=== PATIENT | female | born 1985 | race Caucasian/White ===

== ENCOUNTER 2017-07-04 21:29 | Inpatient (IN) | payer OTHER ==
[~2017-07-04] VITALS: Ht 170.2 cm; Wt 81.6 kg
[2017-07-06] MEDS ORDERED: FAMOTIDINE(*) 20MG/50ML PREMIX 50 ML IVPB PRN (05:58)
[2017-07-06] MEDS ORDERED: LR(*) 1000 ML BAG 1,000 ML IV PRN (05:58)
[2017-07-06] MEDS ORDERED: DLR(*) 1000 ML BAG 1,000 ML IV PRN (05:58)
[2017-07-06] MEDS ORDERED: OXYTOCIN 30 UNIT/D5LR 500 ML 500 ML IV PRN ×2 (05:58→13:09)
[2017-07-06] MEDS ORDERED: fentaNYL CITR 100 MCG/2 ML AMP IVP PRN (06:00)
[2017-07-06] MEDS ORDERED: cefOXitin/DEX(*) 2GM/50ML PREM 50 ML IVPB PRN ×2 (06:00)
[2017-07-06] MEDS ORDERED: FLUSH 10 ML SYR IVP PRN ×2 (06:00)
[2017-07-06] MEDS ORDERED: METOCLOPRAMIDE 10 MG/2 ML SDV IVP PRN (06:00)
[2017-07-06] MEDS ORDERED: LIDOCAINE 1% LOCAL 300 MG/30ML INJ PRN (06:00)
[2017-07-06 06:20] VITALS: BP 112/78
[2017-07-06 06:30] VITALS: Ht 170.2 cm; Wt 81.6 kg
[2017-07-06] MEDS ORDERED: OMEG-96 PO (06:54)
[2017-07-06] MEDS ORDERED: PREN-127 PO (06:54)
[2017-07-06] MEDS ORDERED: LACT1CAP9 PO (06:55)
[2017-07-06] MEDS ORDERED: ASCO-182 PO (06:55)
[2017-07-06 07:16] LABS: PLATELET COUNT, AUTOMATED 168 K/uL (150-450)
[2017-07-06] MEDS: LR(*) 1000 ML BAG 1,000 ML IV PRN ×2 (07:37→11:51)
--- NOTE | 2017-07-06 09:22 | History & Physical ---
History of Present Illness Age of Patient: 31 : 1 Para or TPAL: 0000 EDC per LMP: Jul 04, 2017 Estimated Gestational Age: 40.2 Chief Complaint contractions History of Present Illness The patient is a 31 year old 1 para 0000 admitted at 40 2/7 weeks estimated gestational age with an estimated date of delivery 07/04/17. Patient is admitted with complaint of contractions. No vaginal bleeding. Good movement and occasional contractions. She was evaluated for active labor. She had an uncomplicated course. Her record was reviewed. History Allergies: Coded Allergies: No Known Drug Allergies (Unverified , 07/06/17) Med Rec Home Meds Reported Medications Lactobacillus Combo No.10 (PROBIOTIC) 1 Each Capsule, 1 EACH PO, #1 CAPSULE 07/06/17 Ascorbic Acid (VITAMIN C) 500 Mg Tablet, 500 MG PO, #1 TAB 07/06/17 [place]-3 Fatty Acids/Fish Oil (OMEGA 3 1,000 MG SOFTGEL) 1 Each Capsule, 1 EACH PO QDAY, #1 CAPSULE 07/06/17 Vits W-Ca,Fe,Fa(<1MG) ( VITAMINS) 1 Each Tablet, 1 EACH PO DAILY, #1 TAB 07/06/17 Exam General Exam Vital Signs Vital Signs Date Time Temp Pulse Resp B/P (MAP) Pulse Ox O2 Delivery O2 Flow Rate FiO2 07/06/17 06:20 110 18 112/78 (89) 99 Room Air Cardiovascular: Regular Rate and Rhythm Respiratory: Clear to Auscultation Abdomen: Gravid - Non-Tender Extremities: No Edema Cervical Dialation: 3 (RN) Cervical Effacement (%): 100 Uterine Contractions(Q min): 3 Uterine Contraction Strength: Moderate Fetus Heart Tones: 140 Heart Tone Variabilty: Moderate FHT Accelerations: 15X15 FHT Category: I Medical Decision Making Data Points Result Diagram: 07/06/17 0656 Assessment and Plan Problems: (1) Normal , first Assessment & Plan: POSSIBLE EARLY LABOR WILL MONITOR FOR CHANGE Copies to: FAN MCKINLEY MD, JOHN MD Jul 06, 2017 09:22
[2017-07-06] MEDS ORDERED: LIDO/EPI 2% MPF 1:200,000 20ML EPI PRN (11:30)
[2017-07-06] MEDS ORDERED: EPIDURAL KEYS XX PRN (11:30)
[2017-07-06] MEDS ORDERED: fentaNYL CITR 100 MCG/2 ML AMP IT PRN (11:30)
[2017-07-06] MEDS ORDERED: FENTANYL/ROPIVACAINE 100 ML BAG EPI PRN (11:30)
[2017-07-06] MEDS ORDERED: LIDOCAINE/PF 2% 200MG/10ML AMP 200 MG/10 ML AMPUL EPI PRN (11:30)
[2017-07-06] MEDS ORDERED: BUPIVACAINE 0.25% MPF INJ EPI PRN (11:30)
[2017-07-06] MEDS ORDERED: BUPIVACAINE 0.5% INJ 30ML VIAL EPI PRN (11:30)
--- NOTE | 2017-07-06 13:09 | Labor Progress Note ---
Labor Subjective Progress Notes Subjective comfortable with epidural, was desiring to do naturally but now wants to deliver. Labor Pain: Comfortable Labor Objective Vital Signs Vital Signs Date Time Temp Pulse Resp B/P (MAP) Pulse Ox O2 Delivery O2 Flow Rate FiO2 07/06/17 06:20 110 18 112/78 (89) 99 Room Air Cervical Dialation: 4 Cervical Effacement (%): 100 Cervical Consistency: Soft Cervical Position: Anterior Station: 0 Uterine Contractions(Q min): 6 Uterine Contraction Strength: Moderate Fetus Heart Tones: 150 Heart Tone Variabilty: Moderate FHT Accelerations: 15X15 FHT Category: I Other Result Diagram: 07/06/17 0656 Assessment and Plan Problems: (1) Normal , first (2) Active labor at term Assessment & Plan: AROM CLEAR FLUID, WILL MONITOR FOR CHANGE, LIKELY WILL NEED PITOCIN AUGMENTATION FAN MCKINLEY MD Jul 06, 2017 13:09
[2017-07-06] MEDS ORDERED: TERBUTALINE SULF 1 MG/ML VIAL SUBQ PRN (13:10)
--- NOTE | 2017-07-06 14:26 | Anesthesia OB Pre-Anes Eval ---
History of Present Illness Anesthesia Start Date: Jul 06, 2017 Anesthesia Start Time: 11:55 OB Anesthesia Diagnosis: spontaneous labor Complications: None known EDC: Jul 04, 2017 : 1 Para: 0 Vital Signs: Vital Signs Date Time Temp Pulse Resp B/P (MAP) Pulse Ox O2 Delivery O2 Flow Rate FiO2 07/06/17 06:20 110 18 112/78 (89) 99 Room Air Pain Ratin Heart Tones: WNL Result Diagram: 07/06/17 0656 Height (Inches): 67.00 Weight (Pounds): 180 BMI Calculated: 28.19 Past Medical History Medical History: no pertinent history Surgical History: no surgical history Attended Childbirth Classes?: [facility], Attended [employer] Lecture Hx Anesthesia Reactions: No Hx Family Anesthesia Reaction: No Home Meds Reported Medications Lactobacillus Combo No.10 (PROBIOTIC) 1 Each Capsule, 1 EACH PO, #1 CAPSULE 07/06/17 Ascorbic Acid (VITAMIN C) 500 Mg Tablet, 500 MG PO, #1 TAB 07/06/17 [place]-3 Fatty Acids/Fish Oil (OMEGA 3 1,000 MG SOFTGEL) 1 Each Capsule, 1 EACH PO QDAY, #1 CAPSULE 07/06/17 Vits W-Ca,Fe,Fa(<1MG) ( VITAMINS) 1 Each Tablet, 1 EACH PO DAILY, #1 TAB 07/06/17 Allergies: Coded Allergies: No Known Drug Allergies (Unverified , 07/06/17) Anesthesia OB ROS Neurological: No migraines/headaches, No seizures, No neuropathy ENT: Denies Tooth caps, Denies Loose teeth, Denies Chipped teeth, Denies Dentures, Denies Bridges, Denies Retainers, Denies Veneers, Denies Implants, Denies Tongue ring Pulmonary: No asthma, No smoker (pks/day/yrs) Airway Class: ll Cardiovascular ROS: No edema, No arrhythmia GI ROS: clear liquids Last Solids Date: Jul 05, 2017 Last Solids Time: 20:00 ROS: No Herpes, No STD(s), No Liver Disease, No Renal Disease Endocrine ROS: No diabetes, No gestational diabetes, No thyroid disorder Musculoskeletal ROS: No low back pain, No low back injury, No scoliosis ASA Classification: 2 Assessment and Plan Anesthesia Plan: CSE Assessment Past Medical, Surgical, Family and Obstetric Histories reviewed. Please see ACOG chart. Epidural anesthesia risks, complications and benefits explained to patient's satisfaction for labor and vaginal delivery and/or section. General anesthesia risks and benefits explained to patient's satisfaction. Questions invited, none asked. TUAN LANDRY CRNA Jul 06, 2017 14:26
--- NOTE | 2017-07-06 14:29 | Procedure Note ---
Anesthetic Placement Note Anesthesia Plan: CSE Permit for Anesthesia Signed: Yes Anesthesia Technique: Patient Sitting Anesthesia Prep: Chlorhexidine Interspace: L 3-4 Local Anesthetic: 1% Lidocaine, 25 Gauge Needle Amount Local - cc's: 2 Anesthesia Needle: 17g Touhy/Schliff Anesthesia Attempts: 1 Loss of Resistance: Air Depth of LOS (cm): 5 Epidural Needle Placement: No CSF, No Blood, No Parasthesia Intrathecal Needle: 27 Gauge Pencan Cerebral Spinal Fluid: Yes, Clear Catheter Insertion (cm): 8 Catheter Type: Mejia - Spring Wound Epidural Dressing: Tegaderm, Tape, Adhesive Slater Anesthesia Tray: Lot Number ([id number]), Expiration Date (2018-03-08), Reference Number ([id number]) Anesthesia Medications: Intrathecal Dose: mcg Fentanyl (15), mg Marcaine MPF (1.75), Time (1213) Epidural Test Dose: 1.5 Lido/Epi (1:200,000), Dose - mL (2), Time (1235), Negative Epidural Loading Dose: 0.2% Ropivicaine, With Fentanyl 2mcg/ml, Dose - ml (5), Time (1238) Epidural Infusion: 0.2% Ropivicaine, With Fentanyl 2mcg/ml, Start Time: (1238) Epidural Pump Setting: Bolus Dose - mL (5), Lockout - Minutes (20), Maintenance Rate - mL/hr (6), Maximum per Hour - mL (21) Complications: None Comment: Vital signs stable. Patient comfortable and condition stable. TUAN LANDRY CRNA Jul 06, 2017 14:29
--- NOTE | 2017-07-06 14:31 | Anesthesia Progress Note ---
Progress/Maintenance Anesthesia Note Date: Jul 06, 2017 Anesthesia Note Time: 14:20 Pain Intensity: 0 Pump: On Pump Rate (ML/HR): 6 Sensory Level: T-12 Motor Level: Bending Knees-Bilateral Dilatation: 4 Position: Left, Tilt Assessment and Plan Assessment Remains comfortable, attempting to rest. Does not feel contractions. Rt leg heavier than left. TUAN LANDRY CRNA Jul 06, 2017 14:31
--- NOTE | 2017-07-06 16:48 | Anesthesia Progress Note ---
Progress/Maintenance Anesthesia Note Date: Jul 06, 2017 Anesthesia Note Time: 16:40 Pain Intensity: 1 Pump: On Pump Rate (ML/HR): 6 Sensory Level: t-12 Motor Level: Bending Knees-Bilateral, Other (RT LEG REMAINS HEAVIER) Dilatation: 6 Position: Right, Tilt Assessment and Plan Assessment Feeling more of contractions now, but still very comfortable. TUAN LANDRY CRNA Jul 06, 2017 16:48
--- NOTE | 2017-07-06 19:28 | Labor Progress Note ---
Labor Subjective Progress Notes Subjective COMFORTABLE WITH EPIDURAL Vaginal Discharge/Fluid: Clear Fluid Labor Pain: Comfortable Labor Objective Vital Signs Vital Signs Date Time Temp Pulse Resp B/P (MAP) Pulse Ox O2 Delivery O2 Flow Rate FiO2 07/06/17 06:20 110 18 112/78 (89) 99 Room Air Cervical Dialation: 7 Cervical Effacement (%): 95 Cervical Consistency: Soft Cervical Position: Anterior Station: +1 Presentation: Vertex Uterine Contractions(Q min): 3 Fetus Heart Tones: 130 Other Result Diagram: 07/06/17 0656 Assessment and Plan Problems: (1) Normal , first (2) Active labor at term Assessment & Plan: IUPC PLACED WILL MONITOR FOR CHANGE FAN MCKINLEY MD Jul 06, 2017 19:28
--- NOTE | 2017-07-06 19:45 | Anesthesia Progress Note ---
Progress/Maintenance Anesthesia Note Date: Jul 06, 2017 Anesthesia Note Time: 19:30 Pain Intensity: 4 Pump: On Pump Rate (ML/HR): 6 Sensory Level: t-12 Motor Level: Bending Knees-Bilateral Dilatation: 7 Position: Left, Tilt Drug Bolus: 0.5% Marcaine (3 ML), Other (Fentenyl 50 mcgs) Assessment and Plan Assessment Pt. states she has self admin. bolus per epidural pump x2 and does not notice any change. Manual bolus given. TUAN LANDRY CRNA Jul 06, 2017 19:45
--- NOTE | 2017-07-06 23:24 | Anesthesia Progress Note ---
Progress/Maintenance Anesthesia Note Date: Jul 06, 2017 Anesthesia Note Time: 23:10 Pain Intensity: 0 Pump: Off Sensory Level: T-12 Motor Level: Bending Knees-Bilateral Position: Semi-Fowlers Drug Bolus: 0.5% Marcaine (3 ml), Other (Fentenyl 35 mcgs) Assessment and Plan Assessment Pt. is able to push well. Additional epidural bolus just prior to delivery. Empty syringe attached to epidural catheter. RN agrees to remove with first ambulation. Baby on mom's chest at present. Patient instructed the first ambulation is to be with help of nursing staff. Instructed to preform deep knee bends at bedside before walking. Anesthesia Stop Day: Jul 06, 2017 Anesthesia Stop Time: 23:10 TUAN LANDRY CRNA Jul 06, 2017 23:24
[2017-07-06] MEDS ORDERED: INFLUENZA VIRUS VAC 0.5 ML SYR IM ONLY ONE (23:40)
[2017-07-06] MEDS ORDERED: DIPHTH/TETANUS/ACEL. PERTUSSIS IM ONE (23:40)
[2017-07-06] MEDS ORDERED: MEASLES,MUMP,RUBELLA VAC 0.5ML SC ONE (23:40)
[2017-07-06] MEDS ORDERED: GLYCERIN/WITCH HAZEL LEAF 1 PK TOP PRN (23:40)
[2017-07-06] MEDS ORDERED: ACETAMINOPHEN 325 MG TAB PO PRN (23:40)
[2017-07-06] MEDS ORDERED: MAGNESIUM HYDROXIDE* 30ML UDCP PO PRN (23:40)
[2017-07-06] MEDS ORDERED: HYDROCORTISONE 2.5% CR 30GM TB PR PRN (23:40)
[2017-07-06] MEDS ORDERED: BENZOCAINE 20% 60 ML BTL TP PRN (23:40)
[2017-07-06] MEDS ORDERED: HYDROmorphone HCL 2 MG TAB PO PRN (23:40)
[2017-07-06] MEDS ORDERED: LANOLIN OINT 7 GM TUBE TP PRN (23:40)
--- NOTE | 2017-07-06 23:40 | OB Delivery Note ---
Delivery Note Vaginal Delivery Type: Spont. Vaginal Delivery Delivery Date: Jul 06, 2017 Delivery Time: 23:05 Estimated Gestational Age(wks): 40.2 Delivery Anesthesia: Epidural Sex: Female Infant Weight (gms): 4004 Apgars: 1 Minute (8), 5 Minute (9) Repair Needed: Laceration, Superficial, Vaginal, Labial Estimated Blood Loss: 400 Notes: SPONTANEOUS LABOR, MADE SLOW PROGRESS, AROM AFTER EPIDURAL, PITOCIN AUGMENTED PROGRESSED TO COMPLETE. PUSHED EFFECTIVELY, VERTEX IN ROP POSITION. REMAINDER OF DELIVERED WITH EASE. SUPERFICIAL LACERATIONS REPAIRED WITH 3-0 VICRYL. 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
[2017-07-07] MEDS: IBUPROFEN 800 MG TAB PO SCH ×3 (00:39→17:10)
[2017-07-07 03:10] VITALS: BP 112/60
[2017-07-07 08:00] VITALS: BP 115/76
[2017-07-07] MEDS: MULTIVITAMINS (PRENATAL) TAB PO SCH (08:26)
[2017-07-07] MEDS: DOCUSATE CALCIUM 240 MG CAP PO SCH ×2 (08:26→21:00)
--- NOTE | 2017-07-07 08:58 | OB/GYN Progress Note ---
OB Subjective Progress Notes Subjective Doing well. Pain controlled and ambulating well. Voiding well. Bleeding light. 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
[2017-07-07] MEDS ORDERED: LR(*) 1000 ML BAG 1,000 ML ONE (10:26)
[2017-07-07 13:58] VITALS: BP 108/66
--- NOTE | 2017-07-07 18:48 | Anesthesia Post Eval Note ---
Anesthesia Post Eval Note Vital Signs Date Time Temp Pulse Resp B/P (MAP) Pulse Ox O2 Delivery O2 Flow Rate FiO2 07/07/17 13:58 99.0 69 16 108/66 (80) Room Air 07/07/17 03:10 92 Pt able to participate in Eval: Yes Cardiovascular Status: Satisfactory Respiratory Status: Satisfactory Pain Managment: Satisfactory PO Nausea/Vomiting: Satisfactory Temperature Management: Satisfactory Mental Status: Satisfactory, Alert, Oriented X3 Post-Op Hydration Status: Satisfactory, Tolerating PO Well, Voiding w/o Difficulty Anesthesia Type: CSE Anesthesia Tolerance: Tolerated procedure well without apparent anesthetic complications. LP site clear, extreme redness noted from tape. Pt. states this is normal for her with tape. No blisters noted.. Denies headache or any residual paresthesia. Vital Signs Stable, Patient comfortable and condition stable. TUAN LANDRY CRNA Jul 07, 2017 18:48
[2017-07-07 19:30] VITALS: BP 123/84
[2017-07-07 23:30] VITALS: BP 120/71
[2017-07-08] MEDS: IBUPROFEN 800 MG TAB PO SCH ×2 (00:50→08:50)
[2017-07-08 04:23] VITALS: BP 105/64
--- NOTE | 2017-07-08 08:27 | OB/GYN Progress Note ---
OB Subjective Progress Notes Subjective Doing well. Pain controlled with oral medications. Tolerating regular diet. Ambulating. Voiding. Normal lochia. No preeclampsia symptoms. OB Objective Physical Exam Vital Signs Date Time Temp Pulse Resp B/P (MAP) Pulse Ox O2 Delivery O2 Flow Rate FiO2 07/08/17 04:23 97.0 81 16 105/64 (78) Room Air 07/07/17 23:30 91 Neurological: No Gross deficits Cardiovascular: Normal Rhythm & Peripheral Pulses, Regular Rate and Rhythm Respiratory: No Respiratory Distress, Clear to Auscultation Abdomen: Soft, Non-Tender, Non-Distended, Fundus Firm Extremities: No Cyanosis,Clubbing or Edema, No Edema Integumentary: Skin Intact without Lesions or Rash Psychological: Alert & Oriented X3, Appropriate Mood & Affect Result Diagram: 07/07/17 0532 Assessment and Plan Problems: (1) care and examination immediately after delivery Assessment & Plan: PPD#2. Meeting milestones. Desires discharge to home today. Discussed routine expectations. Questions answered. Follow up in clinic in 6wks for check. (2) Normal , first (3) Active labor at term RAYNE GORDON MD Jul 08, 2017 08:27
[2017-07-08] MEDS ORDERED: IBUP800T37 PO (08:44)
--- NOTE | 2017-07-08 08:46 | OB/GYN Discharge Summary ---
Discharge Summary Reason for Hosp/Final Diag: (1) care and examination immediately after delivery Hospital Course & Plan: PPD#2. Meeting milestones. Desires discharge to home today. Discussed routine expectations. Questions answered. Follow up in clinic in 6wks for check. (2) Normal , first (3) Active labor at term L[place] Vital Signs Vital Signs Date Time Temp Pulse Resp B/P (MAP) Pulse Ox O2 Delivery O2 Flow Rate FiO2 07/08/17 04:23 97.0 81 16 105/64 (78) Room Air 07/07/17 23:30 91 Weight (Pounds): 180 Result Diagram: 07/07/17 0532 Condition: Improved Discharge: Home, Self [facility] Meds Reported Medications Lactobacillus Combo No.10 (PROBIOTIC) 1 Each Capsule, 1 EACH PO, #1 CAPSULE 07/06/17 Ascorbic Acid (VITAMIN C) 500 Mg Tablet, 500 MG PO, #1 TAB 07/06/17 [place]-3 Fatty Acids/Fish Oil (OMEGA 3 1,000 MG SOFTGEL) 1 Each Capsule, 1 EACH PO QDAY, #1 CAPSULE 07/06/17 Vits W-Ca,Fe,Fa(<1MG) ( VITAMINS) 1 Each Tablet, 1 EACH PO DAILY, #1 TAB 07/06/17 Follow up Referrals: [facility] - In 6 Weeks @ [facility] with Robby Marmolejo Md Discharge Diet: As Tolerates Discharge Activity: Pelvic Rest RAYNE GORDON MD Jul 08, 2017 08:46
[2017-07-08] MEDS: DOCUSATE CALCIUM 240 MG CAP PO SCH (08:50)
[2017-07-08] MEDS: MULTIVITAMINS (PRENATAL) TAB PO SCH (08:50)
[2017-07-08 11:30] VITALS: BP 116/73
== END 2017-07-08 12:15 | disposition home or self-care (01) | DRG 774 ==
LOC: OB 07-06 05:56
PROVIDERS: ADMIT Obstetrics & Gynecology; ATTEND Obstetrics & Gynecology
PROC: 10E0XZZ Delivery of Products of Conception, External Approach (ICD-10-PCS; principal; 2017-07-06)
PROC: 0HQ9XZZ Repair Perineum Skin, External Approach (ICD-10-PCS; 2017-07-06)
PROC: 10907ZC Drainage of Amniotic Fluid, Therapeutic from Products of Conception, Via Natural or Artificial Opening (ICD-10-PCS; 2017-07-06)
PROC: 10H07YZ Insertion of Other Device into Products of Conception, Via Natural or Artificial Opening (ICD-10-PCS; 2017-07-06)
DX: O75.5 Delayed delivery after artificial rupture of membranes (principal); O98.32 Other infections with a predominantly sexual mode of transmission complicating childbirth; Z37.0 Single live birth; O70.0 First degree perineal laceration during delivery; E78.2 Mixed hyperlipidemia; Z3A.40 40 weeks gestation of pregnancy; O99.89 Other specified diseases and conditions complicating pregnancy, childbirth and the puerperium; O22.03 Varicose veins of lower extremity in pregnancy, third trimester; Z87.42 Personal history of other diseases of the female genital tract; Z83.3 Family history of diabetes mellitus; Z87.892 Personal history of anaphylaxis; Z86.19 Personal history of other infectious and parasitic diseases
CPT/HCPCS: 36415; 85025; 85027; 86850; 86900; 86901; J2590; J3010; J7120; S0020

== ENCOUNTER 2017-12-13 19:58 | Emergency (ER) | payer OTHER ==
[2017-07-06 06:30] VITALS: BMI 28.2
[~2017-12-13 19:58] MED LIST: ASCO-182 PO; IBUP800T37 PO; LACT1CAP9 PO; OMEG-96 PO; PREN-127 PO
[2017-12-13 20:03] VITALS: BP 127/85
--- NOTE | 2017-12-13 20:36 | ER Report ---
History and Physical Time Seen By MD: 20:29 Hx. of Stated Complaint: BLOOD EXPOSURE FROM NEEDLE STICK, LEFT INDEX FINGER. HPI/ROS CHIEF COMPLAINT: Needlestick HISTORY OF PRESENT ILLNESS: Patient is a 32-year-old female who presents that he ED with a needlestick injury. 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 She does have a small puncture of the left mid 2nd finger. She states that she did wash this out afterwards with soap and water. She did contact employee health and had blood work completed in also notified employee health of the patient who is currently admitted into the hospital. REVIEW OF SYSTEMS: Constitutional: No fever, no chills. Cardiovascular: No chest pain, no palpitations. Respiratory: No cough, no shortness of breath. Musculoskeletal: No back pain. Skin: See history of present illness. Neurological: No headache. Allergies: Coded Allergies: No Known Drug Allergies (Unverified , 12/13/17) Home Meds Discontinued Reported Medications Lactobacillus Combo No.10 (PROBIOTIC) 1 Each Capsule, 1 EACH PO, #1 CAPSULE 07/06/17 Ascorbic Acid (VITAMIN C) 500 Mg Tablet, 500 MG PO, #1 TAB 07/06/17 [place]-3 Fatty Acids/Fish Oil (OMEGA 3 1,000 MG SOFTGEL) 1 Each Capsule, 1 EACH PO QDAY, #1 CAPSULE 07/06/17 Vits W-Ca,Fe,Fa(<1MG) ( VITAMINS) 1 Each Tablet, 1 EACH PO DAILY, #1 TAB 07/06/17 Discontinued Scripts Ibuprofen (IBUPROFEN) 800 Mg Tablet, 1 TAB PO Q8H Y for pain, #40 TAB 0 Refills TAKE WITH FOOD EVERY 8 HOURS Prov:RAYNE GORDON MD 07/08/17 Reviewed Nurses Notes: Yes Old Medical Records Reviewed: Yes Hx Smoking: No Smoking Status: Never Smoker Exposure to Second Hand Smoke?: No Hx Substance Use Disorder: No Constitutional Vital Sign - Last 24 Hours 12/13/17 20:03 Temp 97.4 Pulse 73 Resp 16 B/P (MAP) 127/85 Pulse Ox 99 O2 Delivery Room Air Physical Exam General Appearance: The patient is alert, has no immediate need for airway protection and no signs of toxicity. Respiratory: There are no retractions, lungs are clear to auscultation. Cardiovascular: Regular rate and rhythm. Skin: Small puncture to mid left 2nd finger( Medical Decision Making ED Course/Re-evaluation ED Course Patient had blood work completed and notified apply health of the source patient who is currently admitted. Blood reduction be completed on the source patient as well. Decision to Disposition Date: Dec 13, 2017 Decision to Disposition Time: 20:36 Depart Departure Latest Vital Signs Vital Signs Date Time Temp Pulse Resp B/P (MAP) Pulse Ox O2 Delivery O2 Flow Rate FiO2 12/13/17 20:03 97.4 73 16 127/85 99 Room Air Impression: Primary Impression: Employee exposure to blood Disposition: HOME OR SELF-CARE New Scripts No Active Prescriptions or Reported Meds Departure Forms: Medications Reconciliation, Patient Portal Information, ER Transition Record LARA ELLINGTON PA-C Dec 13, 2017 20:36
== END 2017-12-13 20:40 | disposition home or self-care (01) ==
LOC: ER 20:21
DX: S61.231A Puncture wound without foreign body of left index finger without damage to nail, initial encounter (principal); Z77.21 Contact with and (suspected) exposure to potentially hazardous body fluids; W45.8XXA Other foreign body or object entering through skin, initial encounter; Y99.0 Civilian activity done for income or pay

== ENCOUNTER → 2018-03-18 | Outpatient (REF) ==
[2017-07-06 06:30] VITALS: BMI 28.2
[2018-03-18 08:50] LABS: LDL CHOLESTEROL 83 mg/dl
== END ==
DX: Z02.9 Encounter for administrative examinations, unspecified (principal)